=== PATIENT | male | born 1950 | race Caucasian/White ===

== ENCOUNTER → 2016-06-06 | Outpatient (REF) | payer OTHER ==
[2016-06-06 18:58] LABS: BASO # 0.3 K/mm3 (0.0-0.2); BASO % 2.8 % (0.0-1.0); EOS # 0.4 K/mm3 (0.0-0.50); EOS % 3.7 % (0.0-3.0); LARGE UNSTAINED CELL # 0.2 K/mm3 (0.0-0.4); LARGE UNSTAINED CELL % 1.8 % (0.0-4.0); LYMPH # 2.1 K/mm3 (1.5-4.5); LYMPH % 19.5 % (24.0-44.0); MEAN CORPUSCULAR HEMOGLOBIN 28.9 pg (27.0-33.0); MEAN CORPUSCULAR HGB CONC 33.1 g/dl (32.0-36.5); MEAN CORPUSCULAR VOLUME 87.4 fl (80.0-96.0); MONO # 0.5 K/mm3 (0.0-0.8); MONO % 5.4 % (0.0-5.0); NEUTROPHILS # 6.6 K/mm3 (1.8-7.7); NEUTROPHILS % 66.8 % (36.0-66.0); PLATELET COUNT, AUTOMATED 222 k/mm3 (150-450); RED CELL DISTRIBUTION WIDTH 15.6 % (11.5-14.5); WHITE BLOOD COUNT 9.9 K/mm3 (4.0-10.0)
[2016-06-06 19:30] LABS: ALBUMIN 3.7 GM/DL (3.2-5.2); ALBUMIN/GLOBULIN RATIO 1.28 (1.00-1.93); BILIRUBIN,TOTAL 0.6 MG/DL (0.2-1.0); CALCIUM LEVEL 8.9 MG/DL (8.8-10.2); CREATININE FOR GFR 1.78 MG/DL (0.70-1.30); GLOMERULAR FILTRATION RATE 40.8 (>49); POTASSIUM SERUM 4.3 MEQ/L (3.5-5.1); TOTAL PROTEIN 6.6 GM/DL (6.4-8.2)
== END ==
LOC: M SFHCCAPE 07:52
PROVIDERS: ATTEND Physician Assistant
DX: E11.9 Type 2 diabetes mellitus without complications (principal); Z12.5 Encounter for screening for malignant neoplasm of prostate

== ENCOUNTER → 2016-07-12 | Outpatient (REF) | payer OTHER ==
[2016-07-12 18:40] LABS: ALBUMIN 3.5 GM/DL (3.2-5.2); ALBUMIN/GLOBULIN RATIO 1.25 (1.00-1.93); BILIRUBIN,TOTAL 0.6 MG/DL (0.2-1.0); CALCIUM LEVEL 8.5 MG/DL (8.8-10.2); CREATININE FOR GFR 1.57 MG/DL (0.70-1.30); GLOMERULAR FILTRATION RATE 47.1 (>49); POTASSIUM SERUM 4.4 MEQ/L (3.5-5.1); TOTAL PROTEIN 6.3 GM/DL (6.4-8.2)
== END ==
LOC: M SFHCCAPE 07:10
PROVIDERS: ATTEND Physician Assistant
DX: E11.40 Type 2 diabetes mellitus with diabetic neuropathy, unspecified (principal)

== ENCOUNTER → 2016-08-21 | Outpatient (REF) | payer OTHER ==
[2016-08-21 20:29] LABS: ALBUMIN 3.6 GM/DL (3.2-5.2); CALCIUM LEVEL 8.9 MG/DL (8.8-10.2); CREATININE FOR GFR 1.78 MG/DL (0.70-1.30); GLOMERULAR FILTRATION RATE 40.8 (>49); PHOSPHORUS LEVEL 3.3 MG/DL (2.5-4.9); POTASSIUM SERUM 4.6 MEQ/L (3.5-5.1)
== END ==
LOC: M LABDRWCV 16:58
PROVIDERS: ATTEND Internal Medicine Nephrology
DX: E11.22 Type 2 diabetes mellitus with diabetic chronic kidney disease (principal)

== ENCOUNTER 2016-08-26 21:37 | Emergency (ER) | payer BC, OTHER ==
[~2016-08-26] VITALS: Ht 193 cm; Wt 121.1 kg
[2016-08-26] MEDS ORDERED: QUIN40TA5 PO (21:47)
[2016-08-26] MEDS ORDERED: CHLO25TA PO (21:47)
[2016-08-26] MEDS ORDERED: SPIR25TA2 PO (21:47)
[2016-08-26] MEDS ORDERED: GLIP-162 PO (21:47)
[2016-08-26] MEDS ORDERED: METF-415 PO (21:47)
[2016-08-26] MEDS ORDERED: ROSU10TA2 PO (21:47)
[2016-08-26] MEDS ORDERED: CARV6.25 PO (21:47)
[2016-08-26] MEDS ORDERED: INVO100T PO (21:47)
[2016-08-26] MEDS ORDERED: BYDU1INJ SC (21:48)
[2016-08-26] MEDS ORDERED: NITR0.4S14 SL (21:48)
[2016-08-26 22:26] LABS: BASO % 0.5 % (0.0-1.0); EOS # 0.3 K/mm3 (0.0-0.50); EOS % 3.3 % (0.0-3.0); LARGE UNSTAINED CELL # 0.2 K/mm3 (0.0-0.4); LARGE UNSTAINED CELL % 1.5 % (0.0-4.0); LYMPH # 1.8 K/mm3 (1.5-4.5); LYMPH % 18.2 % (24.0-44.0); MEAN CORPUSCULAR HEMOGLOBIN 31.3 pg (27.0-33.0); MEAN CORPUSCULAR HGB CONC 35.6 g/dl (32.0-36.5); MONO # 0.6 K/mm3 (0.0-0.8); MONO % 6.2 % (0.0-5.0); NEUTROPHILS # 6.9 K/mm3 (1.8-7.7); NEUTROPHILS % 70.3 % (36.0-66.0); PLATELET COUNT, AUTOMATED 197 k/mm3 (150-450); RED CELL DISTRIBUTION WIDTH 14.4 % (11.5-14.5); WHITE BLOOD COUNT 9.8 K/mm3 (4.0-10.0)
[2016-08-26] MEDS ORDERED: NS 500 ML IV ONE ×2 (22:30→23:00)
[2016-08-26 22:48] LABS: ANION GAP 8 MEQ/L (8-16); BLOOD UREA NITROGEN 27 MG/DL (7-18); CALCIUM LEVEL 8.1 MG/DL (8.8-10.2); CARBON DIOXIDE LEVEL 26 MEQ/L (21-32); CHLORIDE LEVEL 103 MEQ/L (98-107); CREATININE FOR GFR 1.59 MG/DL (0.70-1.30); GLOMERULAR FILTRATION RATE 46.5 (>49); GLUCOSE, FASTING 370 MG/DL (80-110); POTASSIUM SERUM 4.3 MEQ/L (3.5-5.1); SODIUM LEVEL 137 MEQ/L (136-145)
[2016-08-26] MEDS ORDERED: HumuLIN R (REGULAR) INSULIN (NovoLIN R) **100U/ML** PER UNIT IV ONE (23:00)
[2016-08-26] MEDS ORDERED: NS 1,000 ML IV ONE (23:15)
[2016-08-27] MEDS ORDERED: HumuLIN R (REGULAR) INSULIN (NovoLIN R) **100U/ML** PER UNIT IV ONE (00:30)
[2016-08-27 01:29] LABS: CALCIUM LEVEL 8.4 MG/DL (8.8-10.2); CREATININE FOR GFR 1.41 MG/DL (0.70-1.30); GLOMERULAR FILTRATION RATE 53.4 (>49); POTASSIUM SERUM 4.2 MEQ/L (3.5-5.1)
[2016-08-27] MEDS ORDERED: NS 1,000 ML IV ONE (01:45)
[2016-08-27 02:56] VITALS: BP 98/68
--- NOTE | 2016-08-27 07:27 | ECGEPIP ---
Stationary ECG Study [facility] - ED Test Date: 2016-08-26 Pat Name: JOZEF VELASQUEZ Department: Room: - Gender: M [employer]chan[employer] Designer: darin : 1950 Requested By: ALESSANDRA MARQUEZ Order Number: [id number] Reading MD: Trina Drake Measurements Intervals [place] Rate: 79 P: 83 AL: 179 QRS: 9 QRSD: 90 T: 64 QT: 367 QTc: 423 Interpretive Statements SINUS RHYTHM WITH OCCASIONAL VENTRICULAR PREMATURE COMPLEXES LOW VOLTAGE LIMB NO PRIOR FOR COMPARISON Electronically Signed On 08-27-2016 7:27:19 EDT by Trina Drake
== END 2016-08-27 02:58 | disposition home or self-care (01) ==
LOC: EDBD 21:37 → M ED 22:21
DX: E11.65 Type 2 diabetes mellitus with hyperglycemia (principal); E86.0 Dehydration; I95.1 Orthostatic hypotension; I10 Essential (primary) hypertension; E78.5 Hyperlipidemia, unspecified; Z86.73 Personal history of transient ischemic attack (TIA), and cerebral infarction without residual deficits; I25.10 Atherosclerotic heart disease of native coronary artery without angina pectoris; Z79.84 Long term (current) use of oral hypoglycemic drugs; Z79.899 Other long term (current) drug therapy; I25.2 Old myocardial infarction

== ENCOUNTER → 2016-09-11 | Outpatient (CLI) | payer BC, OTHER ==
[~2016-09-11] MED LIST: BYDU1INJ SC; CARV6.25 PO; CHLO25TA PO; GLIP-162 PO; INVO100T PO; METF-415 PO; NITR0.4S14 SL; QUIN40TA5 PO; ROSU10TA2 PO; SPIR25TA2 PO
--- NOTE | 2016-09-11 08:05 | REP ---
Clinical: Nephrolithiasis. Comparison: 02/22/2012. Findings: The kidneys and demonstrate age-related cortical atrophic changes along with mild chronic perinephric stranding and bilateral simple and complex cysts measuring up to 3.8 cm on the right kidney and greater than 8.7 cm along the lower pole of the left kidney which demonstrates thin partially calcified septations and may in fact represent multiloculated solitary cyst or multiple adjacent cysts. There is no evidence for hydroureteronephrosis or nephroureterolithiasis. In comparison with 2011, the renal cystic changes appear relatively similar/stable. Liver includes few hypodensities in the right lobe measuring up to 2 cm and most compatible with stable cysts when compared to 2012. Spleen, pancreas, gallbladder, and bilateral adrenal glands are normal for noncontrast evaluation. The enteric system is without obstruction or acute inflammatory process normal terminal ileum and appendix are identified in the right lower quadrant. Scattered colonic diverticula noted without acute diverticulitis. Pelvis demonstrates normal bladder and moderately enlarged prostate gland measuring up to 6.2 cm transverse diameter. No ascites. No adenopathy. No obvious mass lesion. No free air. Atherosclerotic changes to the aorta and branch vessels noted without aneurysm. Musculoskeletal structures demonstrate age-related degenerative changes predominantly involving the L2-L3 through L5-S1 levels. Impression: 1. Simple and complex renal cysts as described above. Consider annual follow up and/or pre and postcontrast CT evaluation for further investigation if necessary. No nephrolithiasis. 2. Few simple/stable hepatic cysts stable compared to 2011. 3. Moderately enlarged prostate gland. 4. Diverticulosis. 5. Age-related atherosclerotic changes to the vasculature and degenerative changes of the lumbosacral spine. Signed by Andrea Alejandre MD 09/11/2016 07:56 A
== END ==
LOC: M RAD 06:53
PROVIDERS: ATTEND Internal Medicine Nephrology
DX: N28.1 Cyst of kidney, acquired (principal); N40.0 Benign prostatic hyperplasia without lower urinary tract symptoms; K76.89 Other specified diseases of liver; K57.90 Diverticulosis of intestine, part unspecified, without perforation or abscess without bleeding

== ENCOUNTER → 2017-02-22 | Outpatient (REF) | payer MEDICARE, OTHER ==
[~2017-02-22] MED LIST changes: +QUIN1TAB15 PO; -QUIN40TA5 PO
[2017-02-22 17:13] LABS: BASO # 0.1 10^3/uL (0.0-0.2); BASO % 0.5 % (0.0-1.0); EOS # 0.1 10^3/uL (0.0-0.50); EOS % 1.4 % (0.0-3.0); IMMATURE GRANULOCYTE % 0.8 % (0-0); LYMPH # 2.2 10^3/uL (1.5-4.5); LYMPH % 21.2 % (24.0-44.0); MEAN CORPUSCULAR HEMOGLOBIN 28.2 pg (27.0-33.0); MEAN CORPUSCULAR VOLUME 82.8 fl (80.0-96.0); MONO # 0.8 10^3/uL (0.0-0.8); MONO % 7.8 % (0.0-5.0); NEUTROPHILS # 7.1 10^3/uL (1.8-7.7); NEUTROPHILS % 68.3 % (36.0-66.0); PLATELET COUNT, AUTOMATED 239 10^3/uL (150-450); RED CELL DISTRIBUTION WIDTH 15.1 % (11.5-14.5); WHITE BLOOD COUNT 10.4 10^3/uL (4.0-10.0)
[2017-02-22 18:39] LABS: FREE T4 1.28 NG/DL (0.76-1.46)
== END ==
LOC: M SFHCCAPE 08:02
PROVIDERS: ATTEND Physician Assistant
DX: E78.2 Mixed hyperlipidemia (principal)
CPT/HCPCS: 80061; 84439; 84443; 85025; G0463

== ENCOUNTER → 2017-06-04 | Outpatient (REF) | payer MEDICARE, OTHER ==
[2017-06-04 19:21] LABS: ALBUMIN 3.8 GM/DL (3.2-5.2); ALBUMIN/GLOBULIN RATIO 1.19 (1.00-1.93); ALKALINE PHOSPHATASE 56 U/L (45-117); ALT/SGPT 27 U/L (12-78); ANION GAP 10 MEQ/L (8-16); AST/SGOT 16 U/L (7-37); BILIRUBIN,TOTAL 0.7 MG/DL (0.2-1.0); BLOOD UREA NITROGEN 30 MG/DL (7-18); CALCIUM LEVEL 9.5 MG/DL (8.8-10.2); CARBON DIOXIDE LEVEL 26 MEQ/L (21-32); CHLORIDE LEVEL 105 MEQ/L (98-107); CREATININE FOR GFR 1.52 MG/DL (0.70-1.30); GLOMERULAR FILTRATION RATE 48.8 (>49); GLUCOSE, FASTING 216 MG/DL (70-100); POTASSIUM SERUM 4.2 MEQ/L (3.5-5.1); SODIUM LEVEL 141 MEQ/L (136-145)
[2017-06-04 20:03] LABS: BASO # 0.1 10^3/uL (0.0-0.2); BASO % 0.5 % (0.0-1.0); EOS # 0.1 10^3/uL (0.0-0.50); EOS % 0.9 % (0.0-3.0); HEMOGLOBIN 16.3 g/dl (14.0-18.0); IMMATURE GRANULOCYTE # 0.1 10^3/uL (0-0); IMMATURE GRANULOCYTE % 0.6 % (0-0); LYMPH # 2.2 10^3/uL (1.5-4.5); LYMPH % 21.6 % (24.0-44.0); MEAN CORPUSCULAR HEMOGLOBIN 28.5 pg (27.0-33.0); MEAN CORPUSCULAR HGB CONC 33.3 g/dl (32.0-36.5); MEAN CORPUSCULAR VOLUME 85.8 fl (80.0-96.0); MONO # 0.9 10^3/uL (0.0-0.8); MONO % 8.4 % (0.0-5.0); PLATELET COUNT, AUTOMATED 237 10^3/uL (150-450); RED BLOOD COUNT 5.71 10^6/uL (4.30-6.10); RED CELL DISTRIBUTION WIDTH 15.3 % (11.5-14.5); WHITE BLOOD COUNT 10.3 10^3/uL (4.0-10.0)
[2017-06-04 20:19] LABS: ESTIMATED AVERAGE GLUCOSE 249 MG/DL (60-110); HEMOGLOBIN A1c 10.3 %
== END ==
LOC: M SFHCCAPE 07:39
DX: I10 Essential (primary) hypertension (principal); R79.89 Other specified abnormal findings of blood chemistry; E11.40 Type 2 diabetes mellitus with diabetic neuropathy, unspecified
CPT/HCPCS: 80053

== ENCOUNTER → 2017-10-22 | Outpatient (REF) | payer MEDICARE, OTHER ==
[2017-10-22 17:59] LABS: TOTAL 25(OH) VITAMIN D 18.5 NG/ML (30.0-100.0)
[2017-10-22 18:02] LABS: ESTIMATED AVERAGE GLUCOSE 197 MG/DL (60-110); HEMOGLOBIN A1c 8.5 %
== END ==
LOC: M LABDRWCV 16:25
DX: E55.9 Vitamin D deficiency, unspecified (principal); E11.65 Type 2 diabetes mellitus with hyperglycemia; E66.9 Obesity, unspecified; Z68.31 Body mass index [BMI] 31.0-31.9, adult
CPT/HCPCS: 83036

== ENCOUNTER → 2018-02-28 | Outpatient (CLI) | payer MEDICARE, BC, OTHER | LOC: M RAD 06:50 | DX: N18.3 Chronic kidney disease, stage 3 (moderate) (principal); N28.1 Cyst of kidney, acquired; N40.0 Benign prostatic hyperplasia without lower urinary tract symptoms | CPT/HCPCS: 76775 ==

== ENCOUNTER → 2018-03-12 | Outpatient (REF) | payer MEDICARE, OTHER ==
[2018-03-12 18:40] LABS: ALBUMIN 3.6 GM/DL (3.2-5.2); ALBUMIN/GLOBULIN RATIO 1.24 (1.00-1.93); ALKALINE PHOSPHATASE 52 U/L (45-117); ALT/SGPT 20 U/L (12-78); ANION GAP 11 MEQ/L (8-16); AST/SGOT 12 U/L (7-37); BILIRUBIN,TOTAL 0.6 MG/DL (0.2-1.0); BLOOD UREA NITROGEN 31 MG/DL (7-18); CALCIUM LEVEL 9.3 MG/DL (8.8-10.2); CARBON DIOXIDE LEVEL 25 MEQ/L (21-32); CHLORIDE LEVEL 104 MEQ/L (98-107); CHOLESTEROL LEVEL 107 MG/DL (<200); CHOLESTEROL RISK RATIO 2.743 (<5); CREATININE FOR GFR 1.59 MG/DL (0.70-1.30); GLOMERULAR FILTRATION RATE 46.2 (>49); GLUCOSE, FASTING 210 MG/DL (70-100); HDL CHOLESTEROL 39 MG/DL (>40); LDL CHOLESTEROL 42 MG/DL (<100); NON-HDL-C 68 MG/DL; POTASSIUM SERUM 4.3 MEQ/L (3.5-5.1); SODIUM LEVEL 140 MEQ/L (136-145); TOTAL PROTEIN 6.5 GM/DL (6.4-8.2); TRIGLYCERIDES LEVEL 129 MG/DL (<150)
== END ==
LOC: M LABDRAWC 17:30
DX: I25.10 Atherosclerotic heart disease of native coronary artery without angina pectoris (principal); I11.9 Hypertensive heart disease without heart failure; E78.00 Pure hypercholesterolemia, unspecified
CPT/HCPCS: 80053

== ENCOUNTER → 2018-06-11 | Outpatient (REF) | payer MEDICARE, OTHER ==
[~2018-06-11] MED LIST changes: -QUIN1TAB15 PO; +QUIN1TAB4 PO; -ROSU10TA2 PO; +ROSU10TA5 PO; +SPIR-10 PO; -SPIR25TA2 PO
== END ==
LOC: M SFHCCAPE 16:10
PROVIDERS: ATTEND Physician Assistant
DX: L02.32 Furuncle of buttock (principal)

== ENCOUNTER → 2018-06-11 | Outpatient (REF) | payer MEDICARE, OTHER | LOC: M SFHCCAPE 16:08 | PROVIDERS: ATTEND Physician Assistant | DX: L02.32 Furuncle of buttock (principal) ==

== ENCOUNTER → 2019-02-24 | Outpatient (REF) | payer MEDICARE, OTHER ==
[~2019-02-24] MED LIST changes: -ROSU10TA5 PO; +ROSU10TA6 PO
[2019-02-24 17:21] LABS: ALBUMIN 3.6 GM/DL (3.2-5.2); BILIRUBIN,TOTAL 0.7 MG/DL (0.2-1.0); CALCIUM LEVEL 9.2 MG/DL (8.8-10.2); CHOLESTEROL RISK RATIO 2.523 (<5); CREATININE FOR GFR 1.58 MG/DL (0.70-1.30); GLOMERULAR FILTRATION RATE 46.4 (>42); POTASSIUM SERUM 4.3 MEQ/L (3.5-5.1); TOTAL PROTEIN 7.1 GM/DL (6.4-8.2)
== END ==
LOC: M LABDRWCV 16:33
PROVIDERS: ATTEND Physician Assistant
DX: I25.10 Atherosclerotic heart disease of native coronary artery without angina pectoris (principal); I11.9 Hypertensive heart disease without heart failure; E78.00 Pure hypercholesterolemia, unspecified
CPT/HCPCS: 36415; 80053; 80061; G0463

== ENCOUNTER → 2019-04-01 | Outpatient (CLI) | payer MEDICARE, OTHER ==
--- NOTE | 2019-04-01 10:03 | REP ---
CT LEFT ANKLE: Axial CT images of the left ankle performed with sagittal and coronal reconstruction images. At the tibiotalar joint, there is lateral angulation of the talus with respect to the tibia, the amount of angulation is approximately 15 degrees. There is resultant moderately severe narrowing of the lateral aspect of the tibiotalar joint with a subchondral cyst at the lateral talar dome measuring about 8 mm, as well as subchondral sclerosis. There is widening of the medial tibiotalar joint, with moderate narrowing between the medial malleolus and medial talar dome. There is moderate spurring at the anterior distal end of the tibia with a couple of tiny calcific bodies at the anterior margin of the tibiotalar joint, only a couple of millimeters in diameter. A calcific body along the periphery of the lateral malleolus measures 4 mm. A small spur of the posterior malleolus is noted as well as of the anterior medial malleolus. A linear calcific body is seen superior to the posterior calcaneus measuring about 10 x 4 mm. A calcific body posterior to the medial aspect of the navicular bone measures about 6 x 4 mm. Linear fascial calcification is seen along the medial margin of the posterior calcaneus. No acute fracture is seen. Electronically Signed by Alvin Johnston MD 04/01/2019 10:12 A
== END ==
LOC: M RAD 07:41
PROVIDERS: ATTEND Podiatrist Foot & Ankle Surgery
DX: S93.05XA Dislocation of left ankle joint, initial encounter (principal); M14.672 Charcot's joint, left ankle and foot; M85.672 Other cyst of bone, left ankle and foot; M25.775 Osteophyte, left foot; X58.XXXA Exposure to other specified factors, initial encounter

== ENCOUNTER → 2019-04-15 | Outpatient (CLI) | payer MEDICARE, OTHER ==
--- NOTE | 2019-04-15 13:33 | REP ---
RENAL ULTRASOUND: Real-time sonographic evaluation of the kidneys performed. The kidneys are increased in echotexture diffusely suggesting medical renal disease. Right kidney measures 10.7 x 7.3 x 5.4 cm and left kidney 13.4 x 5.7 x 5.7 cm. There is bilateral cortical thinning. There is no hydronephrosis. Multiple anechoic cysts are present bilaterally. A dominant cyst in the right upper pole measures 4.8 x 3.5 x 3.0 cm. A cyst in the mid aspect measures 4.0 x 4.1 x 4.7 cm. There are two adjacent cysts versus a cyst with thin septation in the right lower pole, with a maximum diameter of 3.7 cm. A large simple cyst in the upper pole of the left kidney measures 8.7 x 5.1 x 7.2 cm. There is an adjacent 3.9 cm cyst. Anechoic cyst with internal septations in the left lower pole measures 10.4 x 8.4 x 8.5 cm. Some of the internal septations are mildly thickened. There is no significant change compared to the prior study of 02/28/2018. IMPRESSION: Multiple bilateral renal cysts appears quite similar to the prior study of 02/28/2018. Unreviewed
--- NOTE | 2019-04-15 14:02 | REP ---
ULTRASOUND URINARY BLADDER: Real-time sonographic evaluation of the bladder performed. The bladder measures 9.7 x 7.0 x 8.2 cm for a total volume of 363 mL. Right ureteral jet is visualized. Left ureteral jet is not seen. Postvoid residual is 82 mL, which is 22% of the original volume. Prostate measures 5.1 x 4.4 x 3.5 cm for a total volume of 41 mL. No bladder mass or calculus is seen. IMPRESSION: No bladder mass or calculus. Right ureteral jet is visualized while a left ureteral jet is not seen. Postvoid residual 22%. Mild prostatic enlargement. Unreviewed
== END ==
LOC: M RAD 10:26
PROVIDERS: ATTEND Internal Medicine Nephrology
DX: I12.9 Hypertensive chronic kidney disease with stage 1 through stage 4 chronic kidney disease, or unspecified chronic kidney disease (principal); N28.1 Cyst of kidney, acquired; N40.1 Benign prostatic hyperplasia with lower urinary tract symptoms; R35.0 Frequency of micturition

== ENCOUNTER → 2020-02-12 | Outpatient (CLI) | payer MEDICARE, BC, OTHER ==
[2020-02-12 11:06] LABS: ALBUMIN 3.5 GM/DL (3.2-5.2); BILIRUBIN,TOTAL 0.8 MG/DL (0.2-1.0); CALCIUM LEVEL 9.1 MG/DL (8.8-10.2); CHOLESTEROL RISK RATIO 2.363 (<5); CREATININE FOR GFR 1.68 MG/DL (0.70-1.30); GLOMERULAR FILTRATION RATE 43.1 (>42); MAGNESIUM LEVEL 2.3 MG/DL (1.8-2.4); POTASSIUM SERUM 4.5 MEQ/L (3.5-5.1); TOTAL PROTEIN 7.1 GM/DL (6.4-8.2)
== END ==
LOC: M WUC 08:04
PROVIDERS: ATTEND Physician Assistant
DX: I11.9 Hypertensive heart disease without heart failure (principal); I48.0 Paroxysmal atrial fibrillation; E78.00 Pure hypercholesterolemia, unspecified; I25.10 Atherosclerotic heart disease of native coronary artery without angina pectoris

== ENCOUNTER → 2020-09-10 | Outpatient (CLI) | payer MEDICARE, BC, OTHER ==
[2020-09-10 16:28] LABS: HEMOGLOBIN A1c 8.7 %
[2020-09-10 16:45] LABS: FREE T4 1.16 NG/DL (0.76-1.46); THYROID STIMULATING HORMONE 0.429 uIU/ML (0.358-3.740); TOTAL 25(OH) VITAMIN D 31.6 NG/ML (30.0-100.0)
[2020-09-10 16:47] LABS: MALB URINE SIEMENS 39.9 MG/L; MAU/CREAT RATIO 30.6 MCG/MG (0.0-30.0)
== END ==
LOC: M WUC 10:03
PROVIDERS: ATTEND Internal Medicine Endocrinology, Diabetes & Metabolism
DX: E11.65 Type 2 diabetes mellitus with hyperglycemia (principal); Z79.899 Other long term (current) drug therapy

== ENCOUNTER → 2020-09-10 | Outpatient (CLI) | payer MEDICARE, BC, OTHER ==
--- NOTE | 2020-09-10 11:22 | REP ---
INDICATION: PAIN. COMPARISON: CT 09/11/2016. TECHNIQUE: Three AP and lateral views thoracic spine. FINDINGS: Moderate compression deformity is noted of the T11 vertebral body, new since the prior CT of 09/11/2016. Upper thoracic vertebral bodies are not well visualized due to overlying osseous and soft tissue structures. There is straightening of normal thoracic kyphosis. There is diffuse osteopenia. The visualized disc spaces are not significantly narrowed. Posterior elements appear intact. IMPRESSION: Moderate compression deformity T11 vertebral body new since prior CT of 09/11/2016. Osteopenia. <Electronically signed by Alvin Johnston > 09/10/20 [id number]
--- NOTE | 2020-09-10 11:27 | REP ---
INDICATION: PAIN. COMPARISON: CT 09/11/2016. TECHNIQUE: Six views lumbosacral spine performed. FINDINGS: Mild chronic compression deformity of L5 is unchanged. Remaining lumbar vertebral bodies demonstrate no compression deformity. There is very mild anterolisthesis of L4 on L5. There is also very mild anterolisthesis of L3 on L4. This appears to be due to posterior facet arthropathy, with significant sclerosis and spurring at the posterior facet joints diffusely. There is mild disc space narrowing and subchondral sclerosis at L2-3, L3-4 and L4-5. There is moderate narrowing at L5-S1 with subchondral sclerosis. The posterior elements appear intact. There is slight curvature toward the left. IMPRESSION: Stable chronic mild compression deformity L5. Degenerative changes as discussed above. <Electronically signed by Alvin Johnston > 09/10/20 [id number]
--- NOTE | 2020-09-10 11:29 | REP ---
INDICATION: PAIN. COMPARISON: None. TECHNIQUE: AP view pelvis, AP and frogleg views bilateral hips. FINDINGS: There is no acute fracture or dislocation. There are mild symmetrical degenerative changes of the hips. There is mild symmetrical bilateral joint space narrowing, subchondral sclerosis and spurring. No intrinsic osseous pathology is seen. There are multiple phleboliths in the pelvis. Mild narrowing and sclerosis at the sacroiliac joints bilaterally. IMPRESSION: Mild degenerative changes bilateral hip joints and sacroiliac joints. <Electronically signed by Alvin Johnston > 09/10/20 [id number]
--- NOTE | 2020-09-10 12:25 | REP ---
INDICATION: PAIN. COMPARISON: Chest 08/05/2010. TECHNIQUE: Four views right ribs, five views left ribs, frontal view chest. FINDINGS: There is slight cortical irregularity of the distal right anterior 6th and 7th ribs likely representing old fractures. Otherwise there is no other evidence of bilateral rib fracture or bone lesion. Lungs are clear. No infiltrate is seen. The heart is normal in size. There is calcification and tortuosity of the thoracic aorta. IMPRESSION: There appear to be old healed fractures of the anterior right 6th and 7th ribs. No other rib abnormality is seen. <Electronically signed by Alvin Johnston > 09/10/20 [id number]
[2020-09-10 16:13] LABS: BASO % 0.5 % (0.0-1.0); EOS # 0.1 10^3/uL (0.0-0.5); EOS % 1.7 % (0.0-3.0); HEMATOCRIT 47.6 % (42.0-52.0); HEMOGLOBIN 15.4 g/dl (13.5-17.5); LYMPH # 2.1 10^3/uL (1.5-5.0); LYMPH % 27.8 % (24.0-44.0); MEAN CORPUSCULAR HEMOGLOBIN 28.2 pg (27.0-33.0); MEAN CORPUSCULAR HGB CONC 32.4 g/dl (32.0-36.5); MEAN CORPUSCULAR VOLUME 87.2 fl (80.0-96.0); MONO # 0.7 10^3/uL (0.0-0.8); MONO % 8.8 % (2.0-8.0); NEUTROPHILS # 4.6 10^3/uL (1.5-8.5); NEUTROPHILS % 60.9 % (36.0-66.0); PLATELET COUNT, AUTOMATED 205 10^3/uL (150-450); RED BLOOD COUNT 5.46 10^6/uL (4.30-6.10); WHITE BLOOD COUNT 7.6 10^3/uL (4.0-10.0)
[2020-09-10 16:18] LABS: APPEARANCE, URINE CLEAR (CLEAR); BACTERIA, URINE AUTO NEGATIVE (NEGATIVE); BILIRUBIN, URINE AUTO NEGATIVE (NEGATIVE); BLOOD, URINE BLOOD NEGATIVE (NEGATIVE); COLOR, URINE YELLOW (YELLOW); GLUCOSE, URINE (UA) AUTO 3+ mg/dL (NEGATIVE); KETONE, URINE AUTO NEGATIVE (NEGATIVE); LEUKOCYTE ESTERASE, URINE AUTO NEGATIVE (NEGATIVE); NITRITE, URINE AUTO NEGATIVE (NEGATIVE); PROTEIN, URINE AUTO NEGATIVE (NEGATIVE); RBC, URINE AUTO 2 /HPF (0-3); SPECIFIC GRAVITY URINE AUTO 1.021 (1.002-1.035); SQUAMOUS EPITHELIAL CELL UR AU 0 /HPF (0-6); WBC, URINE AUTO 1 /HPF (0-3)
[2020-09-10 16:32] LABS: HEMOGLOBIN A1c 9.2 %
[2020-09-10 16:37] LABS: ALBUMIN 3.5 GM/DL (3.2-5.2); BILIRUBIN,TOTAL 0.5 MG/DL (0.2-1.0); CALCIUM LEVEL 9.7 MG/DL (8.8-10.2); CREATININE FOR GFR 1.34 MG/DL (0.70-1.30); GLOMERULAR FILTRATION RATE 55.8 (>42); POTASSIUM SERUM 4.5 MEQ/L (3.5-5.1); TOTAL PROTEIN 7.2 GM/DL (6.4-8.2)
== END ==
LOC: M WUC 09:56
PROVIDERS: ATTEND Physician Assistant
DX: M54.5 Low back pain (principal); R07.81 Pleurodynia; E11.65 Type 2 diabetes mellitus with hyperglycemia; Z91.81 History of falling; Z79.899 Other long term (current) drug therapy

== ENCOUNTER → 2021-02-09 | Outpatient (REF) | payer MEDICARE, OTHER, BC ==
[2021-02-09 15:56] LABS: HEMATOCRIT 45.6 % (42.0-52.0); HEMOGLOBIN 15.2 g/dl (13.5-17.5); MEAN CORPUSCULAR HEMOGLOBIN 28.4 pg (27.0-33.0); MEAN CORPUSCULAR HGB CONC 33.3 g/dl (32.0-36.5); MEAN CORPUSCULAR VOLUME 85.2 fl (80.0-96.0); PLATELET COUNT, AUTOMATED 198 10^3/uL (150-450); RED BLOOD COUNT 5.35 10^6/uL (4.30-6.10); WHITE BLOOD COUNT 9.2 10^3/uL (4.0-10.0)
[2021-02-09 17:19] LABS: ALBUMIN 3.1 GM/DL (3.2-5.2); BILIRUBIN,TOTAL 0.7 MG/DL (0.2-1.0); CALCIUM LEVEL 9.5 MG/DL (8.8-10.2); CHOLESTEROL RISK RATIO 2.615 (<5); CREATININE FOR GFR 1.37 MG/DL (0.70-1.30); GLOMERULAR FILTRATION RATE 54.4 (>42); MAGNESIUM LEVEL 1.8 MG/DL (1.8-2.4); POTASSIUM SERUM 4.3 MEQ/L (3.5-5.1); TOTAL PROTEIN 6.9 GM/DL (6.4-8.2)
== END ==
LOC: M LABDRWCV 15:34
PROVIDERS: ATTEND Physician Assistant
DX: I11.9 Hypertensive heart disease without heart failure (principal); I48.0 Paroxysmal atrial fibrillation; E78.00 Pure hypercholesterolemia, unspecified; I25.10 Atherosclerotic heart disease of native coronary artery without angina pectoris

== ENCOUNTER → 2021-04-18 | Outpatient (CLI) | payer MEDICARE, OTHER, BC | LOC: M WUC 08:54 | PROVIDERS: ATTEND Physician Assistant Medical | DX: M19.031 Primary osteoarthritis, right wrist (principal); M85.841 Other specified disorders of bone density and structure, right hand; S63.501A Unspecified sprain of right wrist, initial encounter; X58.XXXA Exposure to other specified factors, initial encounter ==

== ENCOUNTER → 2021-05-02 | Outpatient (REF) | payer MEDICARE, OTHER, BC | LOC: M LAB REF 12:53 | PROVIDERS: ATTEND Nurse Practitioner Family | DX: E83.42 Hypomagnesemia (principal) ==

== ENCOUNTER → 2022-03-20 | Outpatient (REF) | payer MEDICARE, OTHER ==
[2022-03-20 18:30] LABS: ALBUMIN 3.2 GM/DL (3.2-5.2); BILIRUBIN,TOTAL 0.5 MG/DL (0.2-1.0); CHOLESTEROL RISK RATIO 2.526 (<5); CREATININE FOR GFR 1.32 MG/DL (0.70-1.30); GLOMERULAR FILTRATION RATE 56.6 (>42); MAGNESIUM LEVEL 2.1 MG/DL (1.8-2.4); POTASSIUM SERUM 4.3 MEQ/L (3.5-5.1); TOTAL PROTEIN 6.7 GM/DL (6.4-8.2)
== END ==
LOC: M LABDRWCV 16:58
PROVIDERS: ATTEND Physician Assistant
DX: I25.10 Atherosclerotic heart disease of native coronary artery without angina pectoris (principal); I48.0 Paroxysmal atrial fibrillation; E78.00 Pure hypercholesterolemia, unspecified

== ENCOUNTER → 2022-05-15 | Outpatient (REF) | payer MEDICARE, OTHER ==
[2022-05-15 18:15] LABS: CALCIUM LEVEL 8.9 MG/DL (8.3-10.6); CREATININE FOR GFR 1.3 MG/DL (0.70-1.30); GLOMERULAR FILTRATION RATE 57.6 (>42); POTASSIUM SERUM 4.6 MMOL/L (3.5-5.1)
== END ==
LOC: M LABDRWCV 17:10
PROVIDERS: ATTEND Physician Assistant
DX: I50.32 Chronic diastolic (congestive) heart failure (principal); E11.40 Type 2 diabetes mellitus with diabetic neuropathy, unspecified

== ENCOUNTER → 2022-06-21 | Outpatient (CLI) | payer MEDICARE, BC, OTHER | LOC: M RAD 09:34 | PROVIDERS: ATTEND Nurse Practitioner Family | DX: I12.9 Hypertensive chronic kidney disease with stage 1 through stage 4 chronic kidney disease, or unspecified chronic kidney disease (principal); N28.1 Cyst of kidney, acquired; N40.1 Benign prostatic hyperplasia with lower urinary tract symptoms; R35.0 Frequency of micturition ==

== ENCOUNTER → 2022-10-17 | Outpatient (REF) | payer MEDICARE, BC, OTHER ==
[2022-10-17 17:48] LABS: HEMOGLOBIN A1c 9.1 % (4.0-6.0)
== END ==
LOC: M SFHCWOUN 16:10
PROVIDERS: ATTEND Surgery
DX: E11.622 Type 2 diabetes mellitus with other skin ulcer (principal)

== ENCOUNTER → 2024-06-25 | Outpatient (CLI) | payer MEDICARE, BC, OTHER ==
[~2024-06-25] MED LIST changes: -ROSU10TA6 PO; +ROSU10TA61 PO
[2024-06-25 15:40] LABS: CALCIUM LEVEL 8.2 MG/DL (8.3-10.6); CREATININE FOR GFR 1.83 MG/DL (0.70-1.30); GLOMERULAR FILTRATION RATE 38.6 (>42); MAGNESIUM LEVEL 2.5 MG/DL (1.8-2.4); POTASSIUM SERUM 4.5 MMOL/L (3.5-5.1)
== END ==
LOC: M WUC 10:39
PROVIDERS: ATTEND Physician Assistant
DX: I50.32 Chronic diastolic (congestive) heart failure (principal); I48.0 Paroxysmal atrial fibrillation

== ENCOUNTER → 2024-08-15 | Outpatient (REF) | payer MEDICARE, BC, OTHER ==
[2024-08-15 13:52] LABS: HEMOGLOBIN A1c 7.8 % (4.0-6.0)
== END ==
LOC: M LAB REF 12:12
PROVIDERS: ATTEND Surgery
DX: T14.8XXA Other injury of unspecified body region, initial encounter (principal); E11.621 Type 2 diabetes mellitus with foot ulcer

== ENCOUNTER 2024-09-08 05:31 | Observation (INO) | payer MEDICARE, BC, OTHER ==
[~2024-09-08] VITALS: Ht 193 cm; Wt 110.2 kg
[2024-09-08] MEDS ORDERED: XARE20TA PO (05:39)
[2024-09-08 06:49] LABS: BASO % 0.3 % (0.0-1.0); EOS # 0.2 10^3/uL (0.0-0.5); EOS % 1.3 % (0.0-3.0); HEMATOCRIT 44.2 % (42.0-52.0); HEMOGLOBIN 14.3 g/dl (13.5-17.5); LYMPH # 1.5 10^3/uL (1.5-5.0); LYMPH % 11.4 % (24.0-44.0); MEAN CORPUSCULAR HEMOGLOBIN 28.2 pg (27.0-33.0); MEAN CORPUSCULAR HGB CONC 32.4 g/dl (32.0-36.5); MEAN CORPUSCULAR VOLUME 87.2 fl (80.0-96.0); MONO # 0.7 10^3/uL (0.0-0.8); MONO % 5.4 % (2.0-8.0); NEUTROPHILS # 10.3 10^3/uL (1.5-8.5); NEUTROPHILS % 81.1 % (36.0-66.0); PLATELET COUNT, AUTOMATED 201 10^3/uL (150-450); RED BLOOD COUNT 5.07 10^6/uL (4.30-6.10); WHITE BLOOD COUNT 12.8 10^3/uL (4.0-10.0)
[2024-09-08 07:22] LABS: ALBUMIN 3.1 G/DL (3.2-5.2); BILIRUBIN,DIRECT 0.2 MG/DL (<0.4); BILIRUBIN,TOTAL 0.6 MG/DL (0.3-1.2); CALCIUM LEVEL 8.8 MG/DL (8.3-10.6); CK-MB VALUE MASS 1.4 NG/ML (<3.6); CREATININE FOR GFR 1.07 MG/DL (0.70-1.30); GLOMERULAR FILTRATION RATE 71.9 (>42); POTASSIUM SERUM 4.1 MMOL/L (3.5-5.1); TOTAL PROTEIN 6.9 G/DL (5.7-8.2)
[2024-09-08 07:25] LABS: MB/CK RELATIVE INDEX 2.85 (< OR =4)
[2024-09-08] MEDS: NS (Normal Saline) 0.9% 1,000 ML IV ONE (07:26)
[2024-09-08] MEDS: MORPHINE 4 MG/ML 1ML VIAL IV ONE ×3 (07:27→10:00)
[2024-09-08] MEDS: ONDANSETRON 4MG 2ML VIAL IV ONE (07:27)
[2024-09-08] MEDS ORDERED: ISOVUE-370 76% 100ML VIAL As Ordered ONE (08:03)
[2024-09-08 08:30] LABS: CK-MB VALUE MASS 1.4 NG/ML (<3.6)
[2024-09-08 08:42] LABS: MB/CK RELATIVE INDEX 3.11 (< OR =4)
[2024-09-08 08:59] LABS: KETONE, URINE AUTO RFX TRACE mg/dL (NEGATIVE); LEUKOCYTE ESTERASE UR AUTO RFX NEGATIVE (NEGATIVE); NITRITE, URINE AUTO RFX NEGATIVE (NEGATIVE); RBC, URINE AUTO RFX 14 /HPF (0-3); SQUAM EPITHELIAL CELL UR AURFX 0 /HPF (0-6); WBC, URINE AUTO RFX 1 /HPF (0-3)
[2024-09-08] MEDS: TAMSULOSIN 0.4 MG CAP PO SCH (09:00)
[2024-09-08] MEDS: GABAPENTIN 100 MG CAP PO SCH (09:00)
[2024-09-08] MEDS ORDERED: TAMS1CAP17 PO (09:24)
[2024-09-08] MEDS ORDERED: XALA0.007 OU (09:24)
[2024-09-08] MEDS ORDERED: GLIP1TAB11 PO (09:24)
[2024-09-08] MEDS ORDERED: SEMA1PEN2 SC (09:24)
[2024-09-08] MEDS ORDERED: GABA-1171 PO (09:24)
[2024-09-08] MEDS ORDERED: OCUVTAB4 PO (09:24)
[2024-09-08] MEDS ORDERED: VITA200021 PO (09:24)
[2024-09-08] MEDS ORDERED: ASPI81TA26 PO (09:24)
[2024-09-08] MEDS ORDERED: ROSU20TA86 PO (09:24)
[2024-09-08] MEDS ORDERED: LANTINJ4 SQ (09:24)
[2024-09-08] MEDS ORDERED: FURO20TA2 PO (09:24)
[2024-09-08] MEDS ORDERED: JARD1TAB PO (09:24)
[2024-09-08] MEDS ORDERED: DIGO0.123 PO (09:24)
[2024-09-08] MEDS ORDERED: HOME MED LIST COMPLETE! XX SCH (09:25)
[2024-09-08] MEDS: TAMSULOSIN 0.4 MG CAP PO ONE (11:48)
[2024-09-08] MEDS: HYDROMORPHONE HCL 0.5 MG/ 0.5 ML SYRINGE IV PRN (11:49)
[2024-09-08] MEDS: KETOROLAC 30 MG/ML 1ML VIAL IV ONE (13:35)
[2024-09-08] MEDS ORDERED: ACETAMINOPHEN 325 MG TAB PO PRN (13:35)
[2024-09-08] MEDS ORDERED: MOM 30ML SUSPENSION UDC PO PRN (13:35)
[2024-09-08] MEDS ORDERED: MAALOX 30 ML SUSP *UDC PO PRN (13:35)
[2024-09-08] MEDS ORDERED: GLUCAGON INJ 1MG VIAL SC PRN (14:30)
[2024-09-08] MEDS ORDERED: GLUCOSE 4 GM CHEW PO PRN (14:30)
[2024-09-08] MEDS ORDERED: DEXTROSE 50% 50ML SYRINGE IV PRN (14:30)
[2024-09-08] MEDS ORDERED: MORPHINE 4 MG/ML 1ML VIAL IV PRN (14:30)
[2024-09-08] MEDS ORDERED: MORPHINE 2 MG/ML 1ML VIAL IV PRN (14:30)
[2024-09-08 14:33] VITALS: BP 170/100; TEMP 97.3; O2SAT 94
[2024-09-08] MEDS: CARVedilol 6.25 MG TAB PO SCH (14:44)
[2024-09-08] MEDS: DIGOXIN 0.125 MG TAB PO SCH (14:45)
[2024-09-08] MEDS: INSULIN LISPRO (NovoLOG) PER UNIT SC SCH ×2 (17:30→22:15)
[2024-09-08] MEDS: PANTOPRAZOLE 40MG TAB (PROTONIX) PO ONE (17:45)
[2024-09-08 19:44] VITALS: BP 144/97; TEMP 97.5; O2SAT 95
[2024-09-08] MEDS: LATANOPROST 0.005% OPHTH SOLN 2.5 ML OU SCH (22:14)
[2024-09-08] MEDS: ROSUVASTATIN 10 MG TAB (CRESTOR) PO SCH (22:14)
[2024-09-08] MEDS: LanTUS (INSULIN GLARGINE INJ) 1 UNITS/0.01 ML SC SCH (22:16)
[2024-09-09] VITALS: BP 141/95; TEMP 97.3; O2SAT 94
[2024-09-09 03:43] VITALS: BP 140/95; TEMP 97.9; O2SAT 95
[2024-09-09 04:00] VITALS: BP 140/95; TEMP 97.9; O2SAT 95
[2024-09-09 06:43] LABS: CALCIUM LEVEL 8.3 MG/DL (8.3-10.6); CREATININE FOR GFR 1.31 MG/DL (0.70-1.30); GLOMERULAR FILTRATION RATE 56.4 (>42); POTASSIUM SERUM 4.2 MMOL/L (3.5-5.1)
[2024-09-09] MEDS: NS (Normal Saline) 0.9% 1,000 ML IV SCH (07:25)
[2024-09-09 08:41] VITALS: BP 145/97
[2024-09-09] MEDS: PANTOPRAZOLE 40MG TAB (PROTONIX) PO SCH (08:41)
[2024-09-09] MEDS: SODIUM CHLORIDE 0.9% 1000 ML IV ONE (08:50)
[2024-09-09] MEDS ORDERED: FUROSEMIDE 20 MG TAB PO SCH (09:00)
[2024-09-09 12:00] VITALS: BP 149/98; TEMP 97.5; O2SAT 97
== END 2024-09-09 14:17 | disposition home or self-care (01) ==
LOC: M ED 05:31 → INTOOBSV 13:39 → M ED INP 13:39 → M MSPAV 14:25
PROVIDERS: ADMIT Student in an Organized Health Care Education/Training Program; ATTEND Student in an Organized Health Care Education/Training Program
DX: N13.2 Hydronephrosis with renal and ureteral calculous obstruction (principal); R10.32 Left lower quadrant pain; I16.0 Hypertensive urgency; D72.829 Elevated white blood cell count, unspecified; Z86.73 Personal history of transient ischemic attack (TIA), and cerebral infarction without residual deficits; I48.91 Unspecified atrial fibrillation; Z79.01 Long term (current) use of anticoagulants; I10 Essential (primary) hypertension; E11.9 Type 2 diabetes mellitus without complications; Z79.4 Long term (current) use of insulin; I25.10 Atherosclerotic heart disease of native coronary artery without angina pectoris; M14.672 Charcot's joint, left ankle and foot; Z79.82 Long term (current) use of aspirin; Z79.899 Other long term (current) drug therapy
CPT/HCPCS: 74177; 80048; 80076; 81001; 82550; 82553; 83690; 83735; 84484; 85025; 93005; 93041; 96374; 96375; 96376; 97116; 97161; 99285; G0378; J1171; J1815; J2405; Q9967

== ENCOUNTER → 2024-09-17 | Outpatient (CLI) | payer MEDICARE, BC ==
[~2024-09-17] MED LIST changes: +ASPI81TA26 PO; +DIGO0.123 PO; +FURO20TA2 PO; +GABA-1171 PO; +GLIP1TAB11 PO; +JARD1TAB PO; +LANTINJ4 SQ; +OCUVTAB4 PO; +ROSU20TA86 PO; +SEMA1PEN2 SC; +TAMS1CAP17 PO; +VITA200021 PO; +XALA0.007 OU; +XARE20TA PO
[2024-09-17 15:18] LABS: CALCIUM LEVEL 8.6 MG/DL (8.3-10.6); CREATININE FOR GFR 1.14 MG/DL (0.70-1.30); GLOMERULAR FILTRATION RATE 66.7 (>42); POTASSIUM SERUM 4.2 MMOL/L (3.5-5.1)
== END ==
LOC: M WUC 11:42
PROVIDERS: ATTEND Student in an Organized Health Care Education/Training Program
DX: N13.30 Unspecified hydronephrosis (principal)

== ENCOUNTER → 2025-02-02 | Outpatient (CLI) | payer MEDICARE, BC ==
[2025-02-02 18:58] LABS: ALT/SGPT 13.0 U/L (7.0-40); AST/SGOT 13.0 U/L (<34); CALCIUM LEVEL 8.9 MG/DL (8.3-10.6); CARBON DIOXIDE LEVEL 28.0 MMOL/L (20-31); CHLORIDE LEVEL 105.0 MMOL/L (98-107); CREATININE FOR GFR 1.14 MG/DL (0.70-1.30); GLOMERULAR FILTRATION RATE 66.7 (>42); POTASSIUM SERUM 4.3 MMOL/L (3.5-5.1); SODIUM LEVEL 141.0 MMOL/L (136-145)
== END ==
LOC: M WUC 15:12
PROVIDERS: ATTEND Nurse Practitioner Family
DX: E11.65 Type 2 diabetes mellitus with hyperglycemia (principal); Z79.4 Long term (current) use of insulin